=== PATIENT | female | born 1975 | race Caucasian/White ===

== ENCOUNTER 2020-11-06 08:38 | Inpatient (IN) | payer BC ==
[~2020-11-06] VITALS: Ht 165.1 cm; Wt 66.2 kg
[2020-11-06] MEDS ORDERED: IV NS 0.9% 1,000 ML IV ONE (09:00)
--- NOTE | 2020-11-06 09:11 | NUR ---
TRISTAN CONCEPCIONMarlon "From Home was found with open bottles of meds at bedside Alcohol and suicide note". The patient responsive to name. Noted to be drowsy. In room air. Respiration regular and unlabored. Attached to the monitor.
[2020-11-06 09:34] LABS: BASOPHILS % (AUTO) 0.3 % (0.0-2.0); EOSINOPHILS % (AUTO) 0.6 % (0.0-6.0); HEMATOCRIT 43 % (33-45); LYMPHOCYTES # (AUTO) 1.5 K/uL (0.8-4.8); LYMPHOCYTES % (AUTO) 13.2 % (20.0-44.0); MEAN CORPUSCULAR HGB CONC 35 g/dl (31.0-36.0); MEAN CORPUSCULAR VOLUME 89 fL (82-100); MONOCYTES # (AUTO) 0.9 K/uL (0.1-1.30); MONOCYTES % (AUTO) 7.7 % (2.0-12.0); NEUTROPHILS # (AUTO) 8.8 K/uL (1.8-8.9); NEUTROPHILS % (AUTO) 78.2 % (43.0-81.0); PLATELET COUNT (AUTO) 267 K/uL (150-450); WHITE BLOOD COUNT (AUTO) 11.3 K/uL (4.3-11.0)
[2020-11-06 09:38] LABS: BILIRUBIN,URINE Negative (NEGATIVE); COLOR,URINE YELLOW (YELLOW); LEUKOCYTE ESTERASE ,URINE Negative (NEGATIVE); NITRITE, URINE Negative (NEGATIVE); PH,URINE 5.5 (5.0-8.0); PROTEIN,URINE Negative (NEGATIVE); UGLUCOSE Negative (NEGATIVE); UROBILINOGEN,URINE 0.2 EU/dL (0.2)
--- NOTE | 2020-11-06 09:39 | NUR ---
SEIZURE PRECAUTIONS TAKEN
[2020-11-06 09:44] LABS: ACETAMINOPHEN 4 ug/ml (10-30); ALANINE AMINOTRANSFERASE 47 U/L (12-78); ALBUMIN 3.8 g/dL (3.4-5.0); ALCOHOL, BLOOD < 3 mg/dL (0-0); ALKALINE PHOSPHATASE 60 U/L (46-116); ASPARTATE AMINOTRANSFERASE 23 U/L (15-37); BILIRUBIN,DIRECT 0.1 mg/dL (0.0-0.2); BILIRUBIN,TOTAL 0.3 mg/dL (0.2-1.0); CALCIUM, SERUM 9.4 mg/dL (8.5-10.1); CARBON DIOXIDE 25 mmol/L (21-32); CHLORIDE 100 mmol/L (98-107); GLUCOSE 122 mg/dL (74-106); POTASSIUM 3.8 mmol/L (3.5-5.1); SODIUM SERUM 140 mmol/L (136-145); TOTAL PROTEIN, SERUM 7.4 g/dL (6.4-8.2); UREA NITROGEN, BLOOD 7 mg/dL (7-18)
--- NOTE | 2020-11-06 09:52 | NUR ---
t[place]ka [place],will call back
[2020-11-06] MEDS ORDERED: ZOLP10TA2 PO (10:03)
[2020-11-06] MEDS ORDERED: DEXT15CA PO (10:03)
[2020-11-06] MEDS ORDERED: CLON0.5T4 PO (10:03)
[2020-11-06] MEDS ORDERED: FLUO40CA49 PO (10:03)
--- NOTE | 2020-11-06 10:11 | NUR ---
Magistrate Assistant note: This FILM CLEANER met with Dr. Basilio to discuss patient's needs. Patient is a 45 year old female who was brought to the ED by ambulance after being found at home with open bottles of medications at bedside, along with alcohol and a suicide note. Lab tests are pending, but per Dr. Basilio, patient will need ongoing medical monitoring and care, and therefore patient will be admitted to the acute hospital. Crisis team/psychiatry to follow-up with the patient once patient is medically cleared.
--- NOTE | 2020-11-06 11:09 | NUR ---
Kiara [id number] [phone]
--- NOTE | 2020-11-06 11:31 | NUR ---
covid swab done and sent to the lab
[2020-11-06 13:08] LABS: ABG BASE EXCESS -4.6 mmol/L; ABG OXYGEN SATURATION 92.7 % (92.0-98.5); ABG PH 7.303 (7.350-7.450); ABG PO2 71.2 mmHg (75.0-100.0); AaDO2 24.6 mmHg; COHb 0.6 % (0.5-1.5); MetHb 0.3 % (0.0-1.5); O2Hb 91.9 % (94.0-97.0); SITE, ABG Right Radial; VENT MODE, BG room air
[2020-11-06] MEDS ORDERED: ONDANSETRON HCL/PF 4 MG/2 ML VIAL IVP PRN (18:00)
[2020-11-06] MEDS ORDERED: ACETAMINOPHEN 325 MG TABLET PO PRN (18:00)
--- NOTE | 2020-11-06 19:38 | NUR ---
TELE 110
--- NOTE | 2020-11-06 20:22 | NUR ---
recieved bed 324-2
--- NOTE | 2020-11-06 20:31 | NUR ---
REPORT GIVEN TO RHONDA MALLY
--- NOTE | 2020-11-06 21:05 | NUR ---
ALIX TRANSFERRED UNDER ACLS
--- NOTE | 2020-11-06 22:30 | NUR ---
PSYCHOLOGICAL EXAMINERSLIVER CUTTER NOTES: RECEIVED PATIENTS FROM ER VIA [facility] AT 2044 AWAKE, VERBALLY AGGRESSIVE AND COMBATIVE, PLACE IN BED COMFORTABLY, BED IN LOW POSITION, CALL LIGHTS WITHIN REACH, ORDERED PATIENT RESTRAINT DUE TO AGGRESSIVE BEHAVIOR, PLACE SOFT RESTRAINT ON BILATERAL HAND AND MONITOR, PATIENT ON TELE MONITORING WITH READING OF SR 64, CALLED DR. DOOLEY AND REQUEST AN ORDER OF MEDICATION FOR PATIENT DUE TO EPISODE OF WITHDRAWAL, AND AGGRESSIVE BEHAVIOR, PATIENT REMAINS AGGRESSIVE REMOVE IV LINE AT ATUL, UNABLE TO HOOK IV LINE SUCCESSFULLY , PATIENT KEPT ON REMOVING INSPITE OF RESTRAIN, WILL CONTINUE TO MONITOR.
[2020-11-06] MEDS: IV NS 0.9% 1,000 ML IV PRN (23:19)
[2020-11-07] VITALS (17 sets, daily range): BP systolic 102–139; BP diastolic 56–111
[2020-11-07] MEDS: LORAZEPAM INJ 2 MG/ML VIAL IV PRN (00:25)
--- NOTE | 2020-11-07 00:30 | NUR ---
RN NOTES: POISON CONTROLLED CALLED (RONALDO) AND ASKED FOR AN UPDATE ON THE PATIENT, REQUEST AVAILABLE UPDATED LABORATORY FOR PATIENT, MOST RECENT LABS GIVEN, ASKED HOWS THE PATIENT CONDITION, PATIENT REMAINS AGGRESSIVE, TOLD THAT I ALREADY CALLED THE DOCTOR TO ASKED AN ORDER OF MEDICATION FOR AGGRESSIVE AWAITING FOR REPLY, RECOMMENDATION AN UPDATED BMP POISON CONTORL NEEDS AN UPDATED LAB RESULT,SMALL DOSE ATIVAN. WILL CONTINUE TO MONITOR.
[2020-11-07] MEDS: HALOPERIDOL LACTATE INJ 5 MG/ML VIAL IM PRN (00:31)
--- NOTE | 2020-11-07 00:35 | NUR ---
RN NOTES: ATIVAN GIVEN 0.5MG Q6H PRN IVP AT 0025, HALDOL 3MG Q6H PRN GIVEN AT 0031 IM LEFT THIGH, WILL CONTINUE TO MONITOR
[2020-11-07] MEDS ORDERED: HALOPERIDOL LACTATE INJ 5 MG/ML VIAL IM ONE (02:00)
--- NOTE | 2020-11-07 02:11 | NUR ---
RN NOTES: DR DOOLEY ORDERED ANOTHER STAT DOSE OF HALDOL 3MG ONE TIME GIVEN FOR COMBATIVE/ AGGRESSIVE BEHAVIOR
[2020-11-07 02:39] LABS: ALBUMIN 3.6 g/dL (3.4-5.0); BILIRUBIN,TOTAL 0.7 mg/dL (0.2-1.0); CALCIUM, SERUM 8.7 mg/dL (8.5-10.1); POTASSIUM 3.8 mmol/L (3.5-5.1); TOTAL PROTEIN, SERUM 6.8 g/dL (6.4-8.2)
[2020-11-07] MEDS ORDERED: LORAZEPAM INJ 2 MG/ML VIAL IM ONE (05:30)
--- NOTE | 2020-11-07 06:35 | NUR ---
RN NOTES: PER DR DOOLEY OK TO TRANSFER TO ICU IN AM, ONE TIME ORDER OF ATIVAN 1 GRAM IM GIVEN ON RIGHT THIGH WILL CONTINUE TO MONITOR.
--- NOTE | 2020-11-07 06:36 | NUR ---
INFORMATION TECHNOLOGY PROJECT MANAGER CLOSING NOTES: PATIENT AWAKE IN BED BED IN LOW POSITION, CALL LIGHTS WITHIN REACH PATIENT WITH BILATERAL SOFT RESTRAIN ON BOTH UPPER EXTREMIITES, CHECK EVERY 2 HOUR, PATIENT IS AGGRRESSIVE AND COMBATIVE, WITH ON AND OFF SLEEP, WITH IV LINE AT ATUL #22 WITH [id number]. WITH !;! SITTER, PATIENT KEPT CLEAN AND DRY, BELONGINGS TURNOVER TO SAFE, MEDICATION TO PHARMACY, PATIENT KEPT CLEAN AND DRY, ALL NEEDS MET ENDORSE TO INCOMING SHIFT.
--- NOTE | 2020-11-07 07:05 | NUR ---
KINDERGARTEN TEACHER ASSISTANT NOTE RECEIVED PATIENT FROM RHONDA BAL. PATIENT IS ON BED WITH EYES CLOSED BUT WITH LEGS RESTLESS. PATIENT IS EASILY AROUSABLE/ WOKEN UP BUT NOT ORIENTED, WITH NO VERBAL OUTPUT. PATIENT IS ON ROOM AIR WITH NO SIGNS OF RESPIRATORY DISTRESS. PATIENT WITH EPISODES OF COMBATIVENESS AND RESTLESSNESS AND HAD RECEIVED HALDOL AND ATIVAN FROM THE ELEVATOR TROUBLESHOOTER NURSE, THUS HER CURRENT DEMEANOR. PATIENT IS ON SOFT WRIST RESTRAINTS. WITH SITTER AT BEDSIDE. SAFETY MEASURES ENSURED WITH SIDERAILS UP X4, BED LOCKED AND AT LOWEST POSITION AND CALL LIGHT AND TABLE WITHIN REACH AT ALL TIMES. AWAITING AVAILABILITY OF BED FOR TRANSFER TO ICU. WILL CONTINUE TO MONITOR PATIENT.
[2020-11-07 07:13] LABS: BASOPHILS % (AUTO) 0.1 % (0.0-2.0); HEMATOCRIT 36 % (33-45); HEMOGLOBIN 12.6 g/dL (11.5-14.8); LYMPHOCYTES # (AUTO) 0.5 K/uL (0.8-4.8); LYMPHOCYTES % (AUTO) 4.4 % (20.0-44.0); MEAN CORPUSCULAR HGB CONC 35 g/dl (31.0-36.0); MEAN CORPUSCULAR VOLUME 89 fL (82-100); MONOCYTES # (AUTO) 0.9 K/uL (0.1-1.30); MONOCYTES % (AUTO) 8.3 % (2.0-12.0); NEUTROPHILS % (AUTO) 87.2 % (43.0-81.0); PLATELET COUNT (AUTO) 214 K/uL (150-450); RED BLOOD CELL COUNT(AUTO) 4.06 MIL/uL (4.0-5.2); WHITE BLOOD COUNT (AUTO) 10.4 K/uL (4.3-11.0)
[2020-11-07 07:29] LABS: CALCIUM, SERUM 8.3 mg/dL (8.5-10.1); CREATININE 0.9 mg/dL (0.6-1.3); MAGNESIUM 1.7 mg/dL (1.8-2.4); PHOSPHORUS 2.6 mg/dL (2.5-4.9); POTASSIUM 3.6 mmol/L (3.5-5.1)
--- NOTE | 2020-11-07 08:10 | NUR ---
VIOLIN RESTORER NOTE PATIENT TRANSFERRED TO ICU BED 255 ORDERED. PATIENT IS AWAKE BUT WAS NON VERBAL WITH NO SIGNS OF RESPIRATORY DISTRESS. PATIENT ON GAS ENGINE OPERATOR GENERATORS WITH READING OF SINUS RHYTHYM OF 81 BPM. PATIENT ENDORSED ACCORDINGLY TO RHONDA HOLLINGSWORTH.
--- NOTE | 2020-11-07 08:21 | NUR ---
RN NOTE RECEIVED PATIENT FROM RHONDA DRISCOLL. PATIENT IS CURRENTLY RESTLESS IN BED WITH BILATERAL SOFT WRIST RESTRAINTS APPLIED. PATIENT HAS NO SIGNS OF LABORED BREATHING ON ROOM AIR. PATIENT IS AOX0. BED IS LOCKED IN THE LOWEST POSITION, 3 GUARD RAILS RAISED, CALL SHORT WITHIN REACH, AND ALL HOSPITAL SAFETY PRECAUTIONS ARE BEING FOLLOWED. WILL CONTINUE TO MONITOR THROUGHOUT SHIFT.
[2020-11-07] MEDS: Magnesium 1GM/D5W 100ML PREMIX 100 ML IV SCH ×2 (10:00→11:43)
--- NOTE | 2020-11-07 11:02 | NUR ---
RN NOTE LAC#22 IS INFILTRATED AND HAS BEEN REMOVED. NEW RWRIST #20 HAS BEEN INSERTED AND IS PATENT AND INTACT.
--- NOTE | 2020-11-07 13:56 | NUR ---
RN NOTE SPOKE WITH JADEN AT POISON CONTROL. STATED NO NEED FOR FURTHER INTERVENTIONS JUST TO CONTINUE TO MONITOR PATIENT UNTIL SHE IS BACK AT HER BASELINE.
[2020-11-07] MEDS: IV NS 0.9% 1,000 ML IV PRN (15:51)
--- NOTE | 2020-11-07 16:13 | NUR ---
RN NOTE SPOKE WITH PATIENT'S LONNIE YOUNG LOCATED IN THE [phone]. PLEASE CONTACT WITH ANY UPDATES.
--- NOTE | 2020-11-07 18:40 | NUR ---
RN NOTE PATIENT SATURATING 89-90% ON ROOM AIR. PATIENT PLACED ON 2L NC AND NOW SATURATING 97%.
--- NOTE | 2020-11-07 18:55 | NUR ---
RN NOTE PATIENT IS IN BED WITH HOB AT SEMI FOWLERS POSITION. PATIENT IS AOX1. PATIENT IS ON 2L NC WITH NO SIGNS OF LABORED BREATHING. RWRIST #20 IS PATENT ANT INTACT. BED IS LOCKED IN THE LOWEST POSITION, 3 GUARD RAILS, RAISED, CALL SHORT WITHIN REACH, AND ALL HOSPITALS SAFETY PRECAUTIONS ARE BEING FOLLOWED. ALL DUE MEDS GIVEN AND PATIENT REMAINED STABLE THROUGHOUT SHIFT. WILL ENDORSE TO DIETITIAN TEACHING RN.
--- NOTE | 2020-11-07 19:30 | NUR ---
RN NOTE RECEIVED PT LETHARGIC, JUST NOD YES WHEN ASKED IF SHE FEELS FINE. DENIES ANY PAIN. ON O2 AT 2L VIA NC, SATING 97 %. NO S/SX OF DISTRESS NOTED. PT WITH BILATERAL WRIST RESTRAINTS, WITH GOOD CIRCULATION. PT ON IVF NS AT 125ML/HR. ALL SAFETY MEASURES IN PLACE, SEIZURE PRECAUTION. WILL CONTINUE TO MONITOR.
[2020-11-08] VITALS (12 sets, daily range): BP systolic 112–139; BP diastolic 58–84
[2020-11-08] MEDS: IV NS 0.9% 1,000 ML IV PRN ×3 (00:06→23:02)
--- NOTE | 2020-11-08 00:15 | NUR ---
RN NOTE SPOKE TO SARATH FROM POISON CONTROL, GAVE UPDATES REGARDING PT. REQUESTED FOR AMMONIA LEVEL. OBTAINED ORDER FROM DR DOOLEY.
--- NOTE | 2020-11-08 01:00 | NUR ---
rn note pt still lethargic, no agitation noted. released from restraints. no skin breakdown noted. pt with 1:1 sitter. will continue to monitor.
--- NOTE | 2020-11-08 03:44 | NUR ---
rn note continue to closely monitor pt, with sitter, no agitation noted. pt still lethargic, episode of waking up, confused, not engaging to conversation. reoriented to time place and situation.
[2020-11-08 04:46] LABS: BASOPHILS % (AUTO) 0.1 % (0.0-2.0); HEMATOCRIT 35 % (33-45); HEMOGLOBIN 12.3 g/dL (11.5-14.8); LYMPHOCYTES # (AUTO) 0.7 K/uL (0.8-4.8); LYMPHOCYTES % (AUTO) 6.3 % (20.0-44.0); MEAN CORPUSCULAR HGB CONC 35 g/dl (31.0-36.0); MEAN CORPUSCULAR VOLUME 90 fL (82-100); MONOCYTES % (AUTO) 9.5 % (2.0-12.0); NEUTROPHILS # (AUTO) 8.9 K/uL (1.8-8.9); NEUTROPHILS % (AUTO) 84.1 % (43.0-81.0); PLATELET COUNT (AUTO) 206 K/uL (150-450); RED BLOOD CELL COUNT(AUTO) 3.89 MIL/uL (4.0-5.2); WHITE BLOOD COUNT (AUTO) 10.6 K/uL (4.3-11.0)
[2020-11-08 04:59] LABS: ALBUMIN 2.9 g/dL (3.4-5.0); BILIRUBIN,TOTAL 0.7 mg/dL (0.2-1.0); CALCIUM, SERUM 8.1 mg/dL (8.5-10.1); CREATININE 0.6 mg/dL (0.6-1.3); MAGNESIUM 1.9 mg/dL (1.8-2.4); PHOSPHORUS 2.1 mg/dL (2.5-4.9); POTASSIUM 3.6 mmol/L (3.5-5.1)
--- NOTE | 2020-11-08 04:59 | NUR ---
rn note pt to be transferred to room 321-1, gave report to any.
--- NOTE | 2020-11-08 05:30 | NUR ---
RN NOTE TRANSFERRED PT, NO SIGNS OF DISTRESS NOTED. PT WITH CONTINUOUS MONITORING AND 1:1 SITTER. RESTRAINTS ON, WITH GOOD CIRCULATION. NO SKIN BREAKDOWN NOTED. CONTINUE ON IV NS AT 125ML/HR. IV SITE PATENT AND INTACT. ALL SAFETY MEASURES MAINTAINED.
--- NOTE | 2020-11-08 05:30 | NUR ---
PROCESS CONTROL BOARD OPERATOR OPENING NOTE RECEIVED PT LETHARGIC, NODS YES WHEN ASKED IF SHE FEELS FINE. PT ON 2 LPM O2 VIA NC SATURATING AT 95%. NO SOB OR S/S OF RESPIRATORY DISTRESS NOTED. PT ON EXTERNAL VINE FRUIT FARMING SUPERVISOR READING SR AT 82 BPM. PT DENIES ANY PAIN AT THIS TIME. PT WITH BILATERAL WRIST RESTRAINTS WITH GOOD CIRCULATION. IV ACCESS IN RIGHT WRIST #20 INFUSING NS AT 125ML/HR, INTACT AND PATENT. 1:1 SITTER AT BEDSIDE. SAFETY AND SEIZURE PRECAUTIONS MAINTAINED. BED IN LOWEST LOCKED POSITION, HOB ELEVATED, SIDE RAILS UP X3. CALL LIGHT AND TABLE WITHIN REACH. WILL CONTINUE TO MONITOR.
--- NOTE | 2020-11-08 06:29 | NUR ---
ACCOUNT DEVELOPMENT MANAGER CLOSING NOTE PT IS IN BED LETHARGIC. A/O X1. PT ON 2 LPM O2 VIA NC SATURATING AT 97%. NO SOB OR S/S OF RESPIRATORY DISTRESS NOTED. PT ON EXTERNAL CARRIER ASSOCIATE READING SR AT 80 BPM. PT DENIES ANY PAIN AT THIS TIME. PT WITH BILATERAL WRIST RESTRAINTS WITH GOOD CIRCULATION. IV ACCESS IS INTACT, PATENT, AND FLUSHING WELL. 1:1 SITTER AT BEDSIDE. ALL NEEDS HAVE BEEN MET. SAFETY AND SEIZURE PRECAUTIONS MAINTAINED AT ALL TIMES. BED IN LOWEST LOCKED POSITION, HOB ELEVATED, SIDE RAILS UP X3. CALL LIGHT AND TABLE WITHIN REACH. WILL ENDORSE TO ONCOMING NURSE FOR PANCHO.
--- NOTE | 2020-11-08 07:35 | NUR ---
RN OPENING NOTE RECEIVED PATIENT IN BED. A/O X1. ON 02 2LPM VIA NC. NO SOB NOTED. IN NO APPARENT DISTRESS. IV ACCESS ON R WRIST #20 G, NS RUNNING X 125 ML/HR, INTACT AND PATENT. CURRENTLY ON NPO STATUS. WITH SITTER AT THE BEDSIDE. SAFETY MEASURES MAINTAINED. BED IN LOWEST POSITION, BRAKES LOCKED. SIDE RAILS UP X2. CALL LIGHT WITHIN REACH. WILL CONTINUE PLAN OF CARE.
--- NOTE | 2020-11-08 09:57 | NUR ---
RN NOTE RECEIVED REPORT FROM CATRACHO FOR PANCHO. PATIENT IN STABLE CONDITION AND SITTER AT BEDSIDE. WILL CONTINUE TO MONITOR
[2020-11-08] MEDS ORDERED: Sodium Phosphate 15 MMOL in IV NS 0.9% 245 ML IV SCH (13:00)
[2020-11-08] MEDS: LORAZEPAM INJ 2 MG/ML VIAL IV PRN (14:56)
--- NOTE | 2020-11-08 15:00 | NUR ---
RN NOTE PATIENT SCREAMING AND KICKING LEGS, PATIENT ABLE TO REMOVE HERSELF FROM RESTRAINTS. PATIENT IS SCREAMING FOR HER AND ATIVAN, ATIVAN GIVEN IVP. WILL REASSESS. WILL CONTINUE TO MONITOR
--- NOTE | 2020-11-08 15:05 | NUR ---
RN NOTE PATIENT CONTINUES TO KICK LEGS AND HIT STAFF MEMBERS, HALDOL IM INJECTION GIVEN ORDERED. PATIENT CALMED DOWN, WILL CONTINUE TO MONITOR
[2020-11-08] MEDS: HALOPERIDOL LACTATE INJ 5 MG/ML VIAL IM PRN (15:17)
--- NOTE | 2020-11-08 18:26 | NUR ---
INSURANCE PROFESSIONAL CLOSING NOTE PATIENT IN BED. A/O X1. PATIENT IS BREATHING EVENLY AND NONLABORED ON 02 2LPM VIA NC. NO SOB NOTED. IN NO APPARENT DISTRESS. IV ACCESS ON R WRIST #20 G, NS RUNNING X 125 ML/HR, INTACT AND PATENT. CURRENTLY ON NPO STATUS. WITH SITTER AT THE BEDSIDE RESTRAINTS APPLIED AT THIS TIME, RESTRAINS REMOVED AND CHECKED THROUGHOUT SHIFT. SAFETY MEASURES MAINTAINED. BED IN LOWEST POSITION, BRAKES LOCKED. SIDE RAILS UP X2. CALL LIGHT WITHIN REACH. WILL ENDORSE TO ONCOMING SHIFT
--- NOTE | 2020-11-08 19:15 | NUR ---
RN OPENING NOTE PATIENT IS IN BED, EYES CLOSED EASILY AWAKENED. PATIENT IS CURRENTLY A/O X 2. PATIENT IS ABLE TO MAKE NEEDS KNOWN. PATIENT CURRENTLY HAS BILATERAL SOFT WRIST RESTRAINTS D/T BEING PHYSICALLY AGGRESSIVE AND TAKING OUT IV. PATIENT HAS R WRIST 20 g WITH IV NS RUNNING AT 125 ML/HR. TELE MONITOR READS SR 76 BPM. SAFETY MEASURES IN PLACE: BED LOCKED AND IN LOWEST POSITION, CALL LIGHT WITHIN REACH, SIDE RAILS UP, 1:1 SITTER AT BEDSIDE. WILL MONITOR PATIENT Q2H FOR BEHAVIOR, SAFETY AND CIRCULATION.
[2020-11-09] VITALS: BP 143/73
[2020-11-09 04:00] VITALS: BP 139/73
[2020-11-09] MEDS: IV NS 0.9% 1,000 ML IV PRN (07:12)
--- NOTE | 2020-11-09 07:40 | NUR ---
RN CLOSING NOTE PATIENT IN BED, EYES CLOSED. EASILY AROUSED. PATIENT STILL ON BILATERAL SOFT WRIST RESTRAINTS. PATIENT CHECKED EVERY [address] ME[address] PL[address]. 1:1 STILL AT BEDSIDE. ENDORSED TO DAY SHIFT NURSE FOR PANCHO.
[2020-11-09 07:50] LABS: CREATININE 0.5 mg/dL (0.6-1.3); PHOSPHORUS 1.9 mg/dL (2.5-4.9); POTASSIUM 3.2 mmol/L (3.5-5.1)
[2020-11-09] MEDS ORDERED: POTASSIUM CL. PREMIX PERIPHER. 50 ML IV SCH (10:00)
[2020-11-09] MEDS ORDERED: POTASSIUM CHLORIDE 20 MEQ TAB.PRT.SR PO ONE (11:00)
[2020-11-09] MEDS ORDERED: Sodium Phosphate 15 MMOL in IV NS 0.9% 245 ML IV SCH (14:00)
--- NOTE | 2020-11-09 14:50 | NUR ---
Immunochemist consult: new client banking services clerk consult requested for overdose. Pt is a 45-year-old, female. SW met with pt at her bedside in the med-surg unit. Pt's friend, Shannan, , was at the bedside. Pt presented alert and oriented x3, person, place, time. Pt was not oriented to situation. Pt presented with a depressed mood and anxious affect. Pt presented confused but was able to be redirected. Per chart, pt was brought in by ambulance on 11/06/20 from home where she was found near open bottles of medication, alcohol and a suicide note. Pt overdosed on multiple pills of unknown quantity, and admitted to drinking alcohol and coolant. Per charge nurse, Raisa, pt will be evaluated by Dr. Forbes and acetone button paster when the pt is medically cleared. Pt stated that she currently lives alone at [address] [place] [id number]; [phone]. Pt reported that she has access to social support from her friend, Shannan, , and Adore, . Pt stated that she is ambulatory but may require a walker. Pt is self-employed and also receives financial support from her spouse. Pt stated that she has been feeling depressed and suicidal. Pt initially presented confused when asked about the situation which brought her to the hospital. Pt later reported that she had some alcohol with her pills in order to harm herself. Pt denied recent history of substance use. Per pt's toxicology report pt is positive for amphetamine use. Pt has a hx of Depression and reported that she takes psychiatric medication. Pt stated that she has regular visits with a psychiatrist. Pt denied history of hallucinations. Pt denied current suicidal or homicidal ideation. Pt stated, "I was feeling suicidal before but not now." DINA offered the pt mental health and substance use resources. Pt accepted the resources and thanked DINA. DINA discussed discharge plans with the pt. Pt stated that she plans to return to her prior living arrangement at home and will be provided transportation from her friend(s). PLAN: Pt will be evaluated by Dr. Forbes and acetone button paster when the pt is medically cleared. Pt plans to return to her prior living arrangement at home at the time of discharge. No further SS intervention at this time, however, SS will remain available as needed. RESOURCES: Counseling--Outpatient [facility] [address], [address] [place], [place] [address] (Specializes in in-depth psychotherapy for emotional distress: anxiety, depression, interpersonal conflicts, life transitions, childhood abuse) PSYCHIATRIC OUTPATIENT SERVICES [facility] Partial Hospitalization and Intensive Outpatient Program (Managed Care and [place] Only) [address] [facility] [address] [facility] Partial Hospitalization and Outpatient Program [address] [place] [address] [facility] Partial Hospitalization and Outpatient Program [address] [place], [place] [id number] [facility] [address] [place], [place] [address] [facility] Partial Hospitalization and Outpatient Program [address] [address] [phone] Substance use resources provided included: [facility] Substance Abuse Self-Helpline (SAS) ; [facility] [address] [facility]. [place] [address] ; [facility] [address] [facility] [address] ; [facility] [address] [phone] ; [facility] [address] [facility] [phone] ; [facility] [address] [facility] [facility] [address] ; [facility]; [facility] [place]; [facility] [place]; Alcoholics Anonymous
--- NOTE | 2020-11-09 19:25 | NUR ---
RN OPENING NOTE PT RESTING IN BED, EASILY AROUSABLE TO STIMULI, A/O X2, ABLE TO MAKE NEEDS KNOWN. PT DENIES ANY PAIN OR DISCOMFORT AT THIS TIME. PT WITH SITTER AT BEDSIDE, NO RESTRAINTS IN PLACE. ON ROOM AIR AND TOLERATING WELL. PT IN NO ACUTE DISTRESS. SAFETY MEASURES IN PLACE, BED IN LOWEST LOCKED POSITION, S/R UP X2, CALL LIGHT WITHIN REACH. WILL CONTINUE TO MONITOR.
--- NOTE | 2020-11-10 05:45 | NUR ---
RN NOTE PT REFUSED BLOOD DRAW AT THIS TIME, SHE STATES, "LATER." LAB AWARE AND WILL COME BACK LATER.
--- NOTE | 2020-11-10 06:37 | NUR ---
RN CLOSING NOTE PT RESTING IN BED, EASILY AWAKENS TO STIMULI. VERBALLY RESPONSIVE AND ANSWERS QUESTIONS APPROPRIATELY. PT SLEPT DURING MOST OF THE SHIFT. NO BEHAVIORS DURING THE SHIFT. AMBULATED TO BR TO VOID X2 DURING THE NIGHT WITH STAND-BY ASSIST BY SITTER D/T UNSTEADY GAIT. OFFERED FLUIDS NEEDED. PT DID NOT EAT DINNER YESTERDAY BUT DRINKING FLUIDS WELL THROUGHOUT THE SHIFT (JUICE, TEA, AND WATER). SITTER AT BEDSIDE. NO ACUTE DISTRESS NOTED.
--- NOTE | 2020-11-10 07:58 | NUR ---
RN OPENING NOTE PT AWAKE IN BED RESTING. ON RA WITH NO SOB OR RESPIRATORY DISTRESS PRESENT. A/O X3 AND MALTESE SPEAKING. NO COMPLAINT OF PAIN OR NAUSEA. MILD TREMORS PRESENT. ON SEIZURE PRECAUTIONS. NO ENGINEERING PSYCHOLOGIST PRESENT. NO EDEMA PRESENT. PT IS AMBULATORY WITH 1 PERSON ASSIST AND BATHROOM PRIVILEGES. SKIN IS INTACT. ON REGULAR DIET. NO IV PRESENT, CN NOTIFIED AND MD NOTIFIED. LABS AND ORDERS REVIEWED. SAFETY MEASURES IN PLACE. SIDE RAILS RAISED. BED LOWERED. CALL LIGHT WITHIN REACH. WILL CONTINUE TO MONITOR.
[2020-11-10 08:00] VITALS: BP 110/68
[2020-11-10 08:49] LABS: CALCIUM, SERUM 8.3 mg/dL (8.5-10.1); CREATININE 0.8 mg/dL (0.6-1.3); POTASSIUM 3.2 mmol/L (3.5-5.1)
[2020-11-10 08:56] LABS: PHOSPHORUS 0.8 mg/dL (2.5-4.9)
[2020-11-10] MEDS: POTASSIUM CHLORIDE 20 MEQ TAB.PRT.SR PO SCH ×2 (09:53→11:00)
[2020-11-10] MEDS ORDERED: LORAZEPAM 0.5 MG TABLET PO PRN (12:30)
[2020-11-10] MEDS ORDERED: POTASSIUM CHLORIDE 20 MEQ TAB.PRT.SR PO ONE (12:30)
[2020-11-10] MEDS ORDERED: K PHOS NEUTRAL 250 MG TABLET PO ONE (12:30)
[2020-11-10 16:00] VITALS: BP 101/70
--- NOTE | 2020-11-10 19:05 | NUR ---
RN CLOSING NOTE PT AWAKE IN BED RESTING. ON RA WITH NO SOB OR RESPIRATORY DISTRESS PRESENT. A/O X3 AND ROMANSH SPEAKING. NO COMPLAINT OF PAIN OR NAUSEA. MILD TREMORS PRESENT. ON SEIZURE PRECAUTIONS. NO FARO DEALER PRESENT. NO EDEMA PRESENT. PT IS AMBULATORY WITH 1 PERSON ASSIST AND BATHROOM PRIVILEGES. SKIN IS INTACT. ON REGULAR DIET. NO IV PRESENT, CN NOTIFIED AND MD NOTIFIED. LABS AND ORDERS REVIEWED. SAFETY MEASURES IN PLACE. SIDE RAILS RAISED. BED LOWERED. CALL LIGHT WITHIN REACH. REPORT GIVEN TO NIGHT NURSE FOR PANCHO.
--- NOTE | 2020-11-10 19:20 | NUR ---
RN OPENING NOTE RECEIVED PT AWAKE IN BED, A/O X4, ABLE TO VERBALIZE NEEDS. NO C/O PAIN OR DISCOMFORT AT THIS TIME. DENIES SOB. TALKING TO HER FRIEND AT BEDSIDE. PT IN NO ACUTE DISTRESS. WILL CONTINUE TO MONITOR.
[2020-11-10 20:00] VITALS: BP 111/62
--- NOTE | 2020-11-11 05:40 | NUR ---
PT REFUSED BLOOD DRAW AT THIS TIME. LAB WILL TRY AGAIN LATER.
--- NOTE | 2020-11-11 07:25 | NUR ---
RN CLOSING NOTES PT RESTING IN BED, EASILY AROUSABLE TO STIMULI. A/O X4, ABLE TO VERBALIZE ALL NEEDS. NO SOB, NO C/O PAIN DURING THE SHIFT. OFFERED FLUIDS AND DRINKING WELL(WATER/JUICE) THROUGHOUT THE NIGHT. PT IN NO ACUTE DISTRESS. SAFETY MEASURES MAINTAINED, BED IN LOWEST LOCKED POSITION, S/R UP X2, CALL LIGHT AND TABLE WITHIN EASY REACH.
--- NOTE | 2020-11-11 07:30 | NUR ---
RN MS NOTES PT IN BED, AWAKE, ALERT AND ORIENTED, DENIES PAIN, NO SOB, REFUSED VITAL SIGNS AND LAB WORKS, INFORMED, CALL LIGHT WITHIN REACH.
--- NOTE | 2020-11-11 11:30 | NUR ---
RN MS NOTES PT AWAKE, ALERT AND ORIENTED, NO COMPLAINTOF PAIN, NOT IN DISTRESS, ABLE TO AMBULATE IN HER ROOM, SEEN BY DR. FERNANDO, OK TO DISCHARGE PER MD, PT'S NEW PRESCRIPTION GIVEN TO HER FRIEND CHRISTINA, CONFIRMED RECEIPT BY [employer], BELONGINGS ACCOUNTED FOR, DISCHARGE AND MEDICATION INSTRUCTIONS PROVIDED TO PT, VERBALIZED UNDERSTANDING, PICKED UP BY FRIEND MAZIN, LEFT VIA PRIVATE CAR IN STABLE CONDITION.
== END 2020-11-11 12:30 | disposition home or self-care (01) | DRG 917 ==
LOC: ER 08:57 → TRANSITION 16:02 → TELE 20:42 → ICU 11-07 07:48 → TELE 11-08 05:31 → MED 11-09 14:48
PROVIDERS: ADMIT Nurse Practitioner Acute Care; ATTEND Internal Medicine
DX: T42.4X2A Poisoning by benzodiazepines, intentional self-harm, initial encounter (principal); G92 Toxic encephalopathy; D72.829 Elevated white blood cell count, unspecified; F32.9 Major depressive disorder, single episode, unspecified; Z20.822 Contact with and (suspected) exposure to COVID-19; F41.9 Anxiety disorder, unspecified; F63.9 Impulse disorder, unspecified; Y92.009 Unspecified place in unspecified non-institutional (private) residence as the place of occurrence of the external cause
CPT/HCPCS: 36415; 36600; 80048-TC; 80053-TC; 80061-TC; 80076-TC; 82140-TC; 82550-TC; 82803-TC; 83735-TC; 84100-TC; 85025-TC; 87081-TC; A9563; C9803; G0378; G0480; J1630; J2060; J3475; J3480; J7030; J7050